=== PATIENT | male | born 1990 | race Two or more races ===

== ENCOUNTER 2023-12-23 09:12 | Emergency (ER) | payer SELFPAY ==
[2023-12-23 09:21] VITALS: BP 122/79; PULSE 88; RESP 18; TEMP 97.7; BMI 29.0
[2023-12-23] MEDS ORDERED: diphenhydrAMINE HCL 25 MG CAPSULE (FP) PO ONE (10:19)
[2023-12-23] MEDS: diphenhydrAMINE HCL 25 MG CAPSULE (FP) PO ONE (10:24)
== END 2023-12-23 10:30 | disposition home or self-care (01) ==
LOC: JERFT 09:12
DX: L30.9 Dermatitis, unspecified (principal); R21 Rash and other nonspecific skin eruption; L29.9 Pruritus, unspecified
CPT/HCPCS: 99283-25